=== PATIENT | female | born 1995 | race Caucasian/White ===

== ENCOUNTER 2017-11-10 02:57 | Emergency (ER) | payer OTHER ==
[~2017-11-10] VITALS: Ht 170.2 cm; Wt 65.0 kg
[2017-11-10] MEDS ORDERED: SODIUM CHLOR 0.9% 1000 ML INJ 1,000 ML IV ONE ×2 (03:30→04:45)
[2017-11-10] MEDS ORDERED: SODIUM CHLORIDE 0.9% FLUSH 10 ML FLUSH IVF PRN (03:30)
[2017-11-10] MEDS ORDERED: ONDANSETRON HCL 4 MG/2 ML VIAL IV PUSH ONE (03:30)
[2017-11-10 03:53] VITALS: BP 119/72; PULSE 97; RESP 16; TEMP 98.4; O2SAT 99
[2017-11-10] MEDS ORDERED: ANXIETY (03:56)
[2017-11-10] MEDS ORDERED: BIRTH CONTROL (03:56)
[2017-11-10 03:57] LABS: AUTOMATED NEUTROPHIL # 2.9 TH/MM3 (1.8-7.7); BASOPHIL # 0.1 TH/MM3 (0-0.2); BASOPHIL % 0.9 % (0.0-2.0); EOSINOPHIL % 0.5 % (0.0-4.0); HEMATOCRIT 47.2 % (35.0-46.0); HEMOGLOBIN 16.6 GM/DL (11.6-15.3); LYMPHOCYTE # 2.9 TH/MM3 (1.0-4.8); MEAN CELL VOLUME 89.1 FL (80.0-100.0); MEAN CORPUSCULAR HEMOGLOBIN 31.3 PG (27.0-34.0); MEAN CORPUSCULAR HGB CONC 35.2 % (32.0-36.0); MEAN PLATELET VOLUME 7.5 FL (7.0-11.0); MONO % 4.1 % (0.0-8.0); MONOCYTE # 0.3 TH/MM3 (0-0.9); NEUT % 47.5 % (16.0-70.0); PLATELET COUNT 343 TH/MM3 (150-450); RED CELL DISTRIBUTION WIDTH 11.8 % (11.6-17.2); WHITE BLOOD COUNT 6.2 TH/MM3 (4.0-11.0)
[2017-11-10 04:13] LABS: ALBUMIN 4.7 GM/DL (3.4-5.0); ALT (GPT) 54 U/L (10-53); AST (GOT) 38 U/L (15-37); BICARBONATE 25.3 MEQ/L (21.0-32.0); BLOOD UREA NITROGEN 8 MG/DL (7-18); CALCIUM 8.9 MG/DL (8.5-10.1); CHLORIDE 107 MEQ/L (98-107); CREATININE 0.74 MG/DL (0.50-1.00); GLOMERULAR FILTRATION RATE 98 ML/MIN (>89); GLUCOSE,RANDOM 93 MG/DL (74-106); SODIUM (NA) 141 MEQ/L (136-145)
--- NOTE | 2017-11-10 04:22 | PD ---
HPI Chief Complaint: Psychiatric Symptoms Time Seen by Provider: 03:19 Travel History International Travel<30 days: No Contact w/Intl Traveler<30days: No Traveled to known affect area: No History of Present Illness HPI Patient is a 22-year-old female presented voluntarily to the emergency department for psychiatric evaluation. Patient states that she has been under more stress lately and has been feeling depressed. She reports that her grandfather is sick, he has been sick for several months but is getting worse recently. She states that she has been drinking this evening, she does not normally drink on a daily basis. She reports 3-4 beers and 2 shots. Patient denies any suicidal ideations at this time, she does report saying that she felt suicidal to her friends and that is how the police got involved. Patient did arrive to the emergency department with a harbor police launch commander. She has no physical complaints at this time. Symptom onset is unknown, symptoms are moderate in nature. Patient is tearful on arrival. She does report that her fuel efficient aircraft designer put her on anxiety medicine about a month ago. [facility] Past Medical History Anxiety: Yes ?: Not Past Surgical History Surgical History: No Previous Surgery Social History Alcohol Use: Yes Tobacco Use: No Substance Use: No Allergies-Medications (Allergen,Severity, Reaction): Coded Allergies: latex (Verified Allergy, Severe, 11/10/17) Sulfa (Sulfonamide Antibiotics) (Verified Allergy, Unknown, 11/10/17) Reported Meds & Prescriptions Reported Meds & Active Scripts Active Reported [Anxiety] [ Control] Review of Systems Except as stated in HPI: all other systems reviewed are Neg Psychiatric: Positive: Anxiety, Depression, Suicidal Ideations Physical Exam Narrative GENERAL: Well-developed, well-nourished, well-kept female. Appears intoxicated, no acute distress. SKIN: Warm and dry. HEAD: Atraumatic. Normocephalic. EYES: Pupils equal and round. No scleral icterus. No injection or drainage. ENT: No nasal bleeding or discharge. Mucous membranes pink and moist. NECK: Trachea midline. No JVD. CARDIOVASCULAR: Regular rate and rhythm. RESPIRATORY: No accessory muscle use. Clear to auscultation. Breath sounds equal bilaterally. GASTROINTESTINAL: Abdomen soft, non-tender, nondistended. Hepatic and splenic margins not palpable. MUSCULOSKELETAL: Extremities without clubbing, cyanosis, or edema. No obvious deformities. NEUROLOGICAL: Awake and alert. No obvious cranial nerve deficits. Motor grossly within normal limits. Five out of 5 muscle strength in the arms and legs. Normal speech. PSYCHIATRIC: Depressed mood and affect; insight and judgment normal. Data Data Last Documented VS Vital Signs Date Time Temp Pulse Resp B/P (MAP) Pulse Ox O2 Delivery O2 Flow Rate FiO2 11/10/17 03:53 98.4 97 16 119/72 (88) 99 Orders Orders Complete Blood Count With Diff (11/10/17 03:29) Comprehensive Metabolic Panel (11/10/17 03:29) Thyroid Stimulating Hormone (11/10/17 03:29) Iv Access Insert/Monitor (11/10/17 03:29) Psych Screen (11/10/17 03:29) Sodium Chloride 0.9% Flush (Ns Flush) (11/10/17 03:30) Drug Screen, Random Urine (11/10/17 03:29) Alcohol (Ethanol) (11/10/17 03:29) Sodium Chlor 0.9% 1000 Ml Inj (Ns 1000 M (11/10/17 03:30) Ondansetron Inj (Zofran Inj) (11/10/17 03:30) Ed Urine Pregnancytest Poc (11/10/17 04:20) Labs Laboratory Tests Test 11/10/17 03:47 White Blood Count 6.2 TH/MM3 Red Blood Count 5.30 MIL/MM3 Hemoglobin 16.6 GM/DL Hematocrit 47.2 % Mean Corpuscular Volume 89.1 FL Mean Corpuscular Hemoglobin 31.3 PG Mean Corpuscular Hemoglobin Concent 35.2 % Red Cell Distribution Width 11.8 % Platelet Count 343 TH/MM3 Mean Platelet Volume 7.5 FL Neutrophils (%) (Auto) 47.5 % Lymphocytes (%) (Auto) 47.0 % Monocytes (%) (Auto) 4.1 % Eosinophils (%) (Auto) 0.5 % Basophils (%) (Auto) 0.9 % Neutrophils # (Auto) 2.9 TH/MM3 Lymphocytes # (Auto) 2.9 TH/MM3 Monocytes # (Auto) 0.3 TH/MM3 Eosinophils # (Auto) 0.0 TH/MM3 Basophils # (Auto) 0.1 TH/MM3 CBC Comment DIFF FINAL Differential Comment Blood Urea Nitrogen 8 MG/DL Creatinine 0.74 MG/DL Random Glucose 93 MG/DL Total Protein 8.8 GM/DL Albumin 4.7 GM/DL Calcium Level 8.9 MG/DL Alkaline Phosphatase 105 U/L Aspartate Amino Transf (AST/SGOT) 38 U/L Alanine Aminotransferase (ALT/SGPT) 54 U/L Total Bilirubin 0.3 MG/DL Sodium Level 141 MEQ/L Potassium Level 3.8 MEQ/L Chloride Level 107 MEQ/L Carbon Dioxide Level 25.3 MEQ/L Anion Gap 9 MEQ/L Estimat Glomerular Filtration Rate 98 ML/MIN Thyroid Stimulating Hormone 3rd Gen 2.260 uIU/ML Urine Opiates Screen NEG Urine Barbiturates Screen NEG Urine Amphetamines Screen NEG Urine Benzodiazepines Screen NEG Urine Cocaine Screen NEG Urine Cannabinoids Screen NEG Ethyl Alcohol Level 202 MG/DL MDM Medical Decision Making Medical Screen Exam Complete: Yes Emergency Medical Condition: Yes Interpretation(s) Laboratory Tests Test 11/10/17 03:47 White Blood Count 6.2 TH/MM3 Red Blood Count 5.30 MIL/MM3 Hemoglobin 16.6 GM/DL Hematocrit 47.2 % Mean Corpuscular Volume 89.1 FL Mean Corpuscular Hemoglobin 31.3 PG Mean Corpuscular Hemoglobin Concent 35.2 % Red Cell Distribution Width 11.8 % Platelet Count 343 TH/MM3 Mean Platelet Volume 7.5 FL Neutrophils (%) (Auto) 47.5 % Lymphocytes (%) (Auto) 47.0 % Monocytes (%) (Auto) 4.1 % Eosinophils (%) (Auto) 0.5 % Basophils (%) (Auto) 0.9 % Neutrophils # (Auto) 2.9 TH/MM3 Lymphocytes # (Auto) 2.9 TH/MM3 Monocytes # (Auto) 0.3 TH/MM3 Eosinophils # (Auto) 0.0 TH/MM3 Basophils # (Auto) 0.1 TH/MM3 CBC Comment DIFF FINAL Differential Comment Blood Urea Nitrogen 8 MG/DL Creatinine 0.74 MG/DL Random Glucose 93 MG/DL Total Protein 8.8 GM/DL Albumin 4.7 GM/DL Calcium Level 8.9 MG/DL Alkaline Phosphatase 105 U/L Aspartate Amino Transf (AST/SGOT) 38 U/L Alanine Aminotransferase (ALT/SGPT) 54 U/L Total Bilirubin 0.3 MG/DL Sodium Level 141 MEQ/L Potassium Level 3.8 MEQ/L Chloride Level 107 MEQ/L Carbon Dioxide Level 25.3 MEQ/L Anion Gap 9 MEQ/L Estimat Glomerular Filtration Rate 98 ML/MIN Thyroid Stimulating Hormone 3rd Gen 2.260 uIU/ML Urine Opiates Screen NEG Urine Barbiturates Screen NEG Urine Amphetamines Screen NEG Urine Benzodiazepines Screen NEG Urine Cocaine Screen NEG Urine Cannabinoids Screen NEG Ethyl Alcohol Level 202 MG/DL Vital Signs Date Time Temp Pulse Resp B/P (MAP) Pulse Ox O2 Delivery O2 Flow Rate FiO2 11/10/17 03:53 98.4 97 16 119/72 (88) 99 Differential Diagnosis Mood disorder versus substance abuse versus intoxication versus depression versus anxiety versus other Narrative Course Patient is a 22-year-old female presenting voluntarily to the emergency department for psychiatric evaluation. Patient is tearful on arrival, she does report feeling depressed and anxious. She was prescribed an unknown anxiety medicine by her fuel efficient aircraft designer which she does not feel is helping. She has had more alcohol intake today than she normally would drink and this could be contributing to her symptoms however she reports that her grandfather is chronically ill and getting worse which is adding to her stress. Mental health screening discussed with the patient. Psychiatric screen ordered. Labs reviewed, no acute findings identified. Patient's blood alcohol level is 202, she received 1 L of IV fluids, her mother and fianc are at bedside. Patient is medically cleared for psychiatric evaluation. Diagnosis Primary Impression: Medical clearance for psychiatric admission Additional Impression: Alcohol intoxication Qualified Codes: F10.920 - Alcohol use, unspecified with intoxication, uncomplicated Condition: Stable Keily Powell November 10, 2017 04:22
[2017-11-10 04:23] LABS: ALKALINE PHOSPHATASE 105 U/L (45-117); TOTAL BILIRUBIN ADULT 0.3 MG/DL (0.2-1.0); TOTAL PROTEIN 8.8 GM/DL (6.4-8.2)
[2017-11-10] MEDS ORDERED: ALPRAZolam 0.25 MG TAB PO ONE (04:45)
[2017-11-10 13:10] VITALS: BP 112/56; PULSE 77; RESP 14; TEMP 98.4; O2SAT 98
[2017-11-10 14:15] VITALS: BP 103/55; PULSE 84; RESP 18; O2SAT 99
--- NOTE | 2017-11-10 15:03 | PD ---
Physical Exam Date Seen by Provider: November 10, 2017 Time Seen by Provider: 15:00 Data Data Last Documented VS Vital Signs Date Time Temp Pulse Resp B/P (MAP) Pulse Ox O2 Delivery O2 Flow Rate FiO2 11/10/17 14:15 84 18 103/55 (71) 99 11/10/17 13:10 98.4 Room Air Orders Orders Complete Blood Count With Diff (11/10/17 03:29) Comprehensive Metabolic Panel (11/10/17 03:29) Thyroid Stimulating Hormone (11/10/17 03:29) Iv Access Insert/Monitor (11/10/17 03:29) Psych Screen (11/10/17 03:29) Sodium Chloride 0.9% Flush (Ns Flush) (11/10/17 03:30) Drug Screen, Random Urine (11/10/17 03:29) Alcohol (Ethanol) (11/10/17 03:29) Sodium Chlor 0.9% 1000 Ml Inj (Ns 1000 M (11/10/17 03:30) Ondansetron Inj (Zofran Inj) (11/10/17 03:30) Ed Urine Pregnancytest Poc (11/10/17 04:20) Alprazolam (Xanax) (11/10/17 04:45) Sodium Chlor 0.9% 1000 Ml Inj (Ns 1000 M (11/10/17 04:45) Diet Regular Basic (11/10/17 Breakfast) Diet Regular Basic (11/10/17 Lunch) Diet Regular Basic (11/10/17 Dinner) Labs Laboratory Tests Test 11/10/17 03:47 White Blood Count 6.2 TH/MM3 Red Blood Count 5.30 MIL/MM3 Hemoglobin 16.6 GM/DL Hematocrit 47.2 % Mean Corpuscular Volume 89.1 FL Mean Corpuscular Hemoglobin 31.3 PG Mean Corpuscular Hemoglobin Concent 35.2 % Red Cell Distribution Width 11.8 % Platelet Count 343 TH/MM3 Mean Platelet Volume 7.5 FL Neutrophils (%) (Auto) 47.5 % Lymphocytes (%) (Auto) 47.0 % Monocytes (%) (Auto) 4.1 % Eosinophils (%) (Auto) 0.5 % Basophils (%) (Auto) 0.9 % Neutrophils # (Auto) 2.9 TH/MM3 Lymphocytes # (Auto) 2.9 TH/MM3 Monocytes # (Auto) 0.3 TH/MM3 Eosinophils # (Auto) 0.0 TH/MM3 Basophils # (Auto) 0.1 TH/MM3 CBC Comment DIFF FINAL Differential Comment Blood Urea Nitrogen 8 MG/DL Creatinine 0.74 MG/DL Random Glucose 93 MG/DL Total Protein 8.8 GM/DL Albumin 4.7 GM/DL Calcium Level 8.9 MG/DL Alkaline Phosphatase 105 U/L Aspartate Amino Transf (AST/SGOT) 38 U/L Alanine Aminotransferase (ALT/SGPT) 54 U/L Total Bilirubin 0.3 MG/DL Sodium Level 141 MEQ/L Potassium Level 3.8 MEQ/L Chloride Level 107 MEQ/L Carbon Dioxide Level 25.3 MEQ/L Anion Gap 9 MEQ/L Estimat Glomerular Filtration Rate 98 ML/MIN Thyroid Stimulating Hormone 3rd Gen 2.260 uIU/ML Urine Opiates Screen NEG Urine Barbiturates Screen NEG Urine Amphetamines Screen NEG Urine Benzodiazepines Screen NEG Urine Cocaine Screen NEG Urine Cannabinoids Screen NEG Ethyl Alcohol Level 202 MG/DL MDM Supervised Visit with [facility]: No Narrative Course 22-year-old female brought to the emergency department for evaluation of depression. Patient is intoxicated on arrival. She was initially seen by ENA Sanchez and cleared from the medical perspective. She was then evaluated by Rashida Torres physician primary care sports medicine. She is deemed safe for discharge and provided with outpatient resources. Diagnosis is adjustment disorder with mixed anxiety and depression. The patient is stable and discharged home. Diagnosis Primary Impression: Medical clearance for psychiatric admission Additional Impressions: Alcohol intoxication Qualified Codes: F10.920 - Alcohol use, unspecified with intoxication, uncomplicated Adjustment disorder with mixed anxiety and depressed mood Referrals: Psychiatrist Additional Instruction: Rest, hydrate. Seek outpatient treatment for any further psychiatric issues. Return to the ED for any urgent or emergent medical condition. Disposition: DISCHARGE HOME Condition: Stable Daylin Calderón November 10, 2017 15:03
--- NOTE | 2017-11-10 15:15 | PD ---
History of Present Illness Chief Complaint: Psychiatric Symptoms Time Seen by Provider: 14:35 Travel History International Travel<30 Days: No Contact w/Intl Traveler<30days: No Known affected area: No Legal Status Legal Status: Voluntary History of Present Illness: History of Present Illness HPI Patient is a 22-year-old, , single female with no previous psychiatric history presented voluntarily to the emergency department for psychiatric evaluation. Patient reports that earlier in the day she had been drinking alcohol and became more distraught and sad and her friends became concerned for her safety when she told them that in the past she has thought about suicide. Current stressors include her grandfather is sick and on hospice care, she graduated last week and still does not have a job, is getting in March. On arrival her blood alcohol level was 202. Patient was monitored in secure environment and presented no behavioral concerns and no suicidality. EMR is reviewed. No previous contact with [facility] psychiatry Department. Patient is seen. She is clinically sober. Patient does not present any evidence of any psychosis, no sixto or hypomania. The patient is requesting to be discharged and her mother is waiting for her in the lobby. She has been started on medication for her anxiety by her SHAREMILKER but she has not been taking the medication on a regular basis. Patient also admits that she had been drinking a little bit too much and she is not used to drinking that much. Patient is requesting referrals for counseling services. [facility] Past Medical History Anxiety: Yes ?: Not Past Surgical History Surgical History: No Previous Surgery Psychiatric History Psychiatric History Hx Psychiatric Treatment: No previous formal psychiatric treatment. No previous history of suicide attempt. No history of self-injurious behavior. History of Inpatient Treatment: No Guns or firearms in home: No Social History Single female X and has been doing so for the past year. She is currently living with her brother, her [id number], and her fianc. No history of abuse reported. Hx Alcohol Use: Yes Hx Tobacco Use: No Hx Substance Use: No Substance Use Type: Alcohol Other Substances Used: PT DRINKS ON MAYBE 2X A YRS Hx of Substance Use Treatment: No Family Psychiatric History Negative Allergies-Medications (Allergen,Severity, Reaction): Coded Allergies: latex (Verified Allergy, Severe, 11/10/17) Sulfa (Sulfonamide Antibiotics) (Verified Allergy, Unknown, 11/10/17) Reported Meds & Prescriptions Reported Meds & Active Scripts Active Reported [Anxiety] [ Control] Review of Systems Psychiatric: COMPLAINS OF: Anxiety Except as stated in HPI: all other systems reviewed are Neg Mental Status Examination Appearance: Appropriate (In [facility] and maintaining basic hygiene) Consciousness: Alert Orientation: x4 Motor Activity: Normal gait Speech: Unremarkable Language: Adequate Fund of Knowledge: Adequate Attention and Concentration: Adequate Memory: Unremarkable Mood: Sad, Anxious Affect: Other (Tearful) Thought Process & Associations: Intact, Logical, Goal directed Thought Content: Appropriate Hallucination Type: None Delusion Type: None Suicidal Ideation: No Suicidal Plan: No Suicidal Intention: No Homicidal Ideation: No Homicidal Plan: No Homicidal Intention: No Insight: Adequate Judgment: Adequate MDM Medical Decision Making Medical Record Reviewed: Yes Assessment/Plan Patient is a 22-year-old, , single female with no previous psychiatric history presented voluntarily to the emergency department for psychiatric evaluation. Patient reports that earlier in the day she had been drinking alcohol and became more distraught and sad and her friends became concerned for her safety when she told them that in the past she has thought about suicide. Current stressors include her grandfather is sick and on hospice care, she graduated last week and still does not have a job, is getting in March. On arrival her blood alcohol level was 202. Patient was monitored in secure environment and presented no behavioral concerns and no suicidality. Once clinically sober the patient presents no suicidal or homicidal ideation , intent or plan. There is no evidence of unstable mental illness. The patient is anxious but has been able to function at work and at home. She acknowledges that this episode involved alcohol. She wants to be discharged and would like to initiate outpatient counseling. She is provided psychoeducation. Recommend that she continue with medication prescribed by her TABLE AND DESK FINISHER. I have recommended outpatient counseling. Patient is advised to return to the ED if any changes. Psychiatric clear for discharge from the ED. Orders Orders Complete Blood Count With Diff (11/10/17 03:29) Comprehensive Metabolic Panel (11/10/17 03:29) Thyroid Stimulating Hormone (11/10/17 03:29) Iv Access Insert/Monitor (11/10/17 03:29) Psych Screen (11/10/17 03:29) Sodium Chloride 0.9% Flush (Ns Flush) (11/10/17 03:30) Drug Screen, Random Urine (11/10/17 03:29) Alcohol (Ethanol) (11/10/17 03:29) Sodium Chlor 0.9% 1000 Ml Inj (Ns 1000 M (11/10/17 03:30) Ondansetron Inj (Zofran Inj) (11/10/17 03:30) Ed Urine Pregnancytest Poc (11/10/17 04:20) Alprazolam (Xanax) (11/10/17 04:45) Sodium Chlor 0.9% 1000 Ml Inj (Ns 1000 M (11/10/17 04:45) Diet Regular Basic (11/10/17 Breakfast) Diet Regular Basic (11/10/17 Lunch) Diet Regular Basic (11/10/17 Dinner) Results Vital Signs Date Time Temp Pulse Resp B/P (MAP) Pulse Ox O2 Delivery O2 Flow Rate FiO2 11/10/17 14:15 84 18 103/55 (71) 99 11/10/17 13:10 98.4 77 14 112/56 (74) 98 Room Air 11/10/17 03:53 98.4 97 16 119/72 (88) 99 Laboratory Tests Test 11/10/17 03:47 White Blood Count 6.2 Red Blood Count 5.30 Hemoglobin 16.6 Hematocrit 47.2 Mean Corpuscular Volume 89.1 Mean Corpuscular Hemoglobin 31.3 Mean Corpuscular Hemoglobin Concent 35.2 Red Cell Distribution Width 11.8 Platelet Count 343 Mean Platelet Volume 7.5 Neutrophils (%) (Auto) 47.5 Lymphocytes (%) (Auto) 47.0 Monocytes (%) (Auto) 4.1 Eosinophils (%) (Auto) 0.5 Basophils (%) (Auto) 0.9 Neutrophils # (Auto) 2.9 Lymphocytes # (Auto) 2.9 Monocytes # (Auto) 0.3 Eosinophils # (Auto) 0.0 Basophils # (Auto) 0.1 CBC Comment DIFF FINAL Differential Comment Blood Urea Nitrogen 8 Creatinine 0.74 Random Glucose 93 Total Protein 8.8 Albumin 4.7 Calcium Level 8.9 Alkaline Phosphatase 105 Aspartate Amino Transf (AST/SGOT) 38 Alanine Aminotransferase (ALT/SGPT) 54 Total Bilirubin 0.3 Sodium Level 141 Potassium Level 3.8 Chloride Level 107 Carbon Dioxide Level 25.3 Anion Gap 9 Estimat Glomerular Filtration Rate 98 Thyroid Stimulating Hormone 3rd Gen 2.260 Urine Opiates Screen NEG Urine Barbiturates Screen NEG Urine Amphetamines Screen NEG Urine Benzodiazepines Screen NEG Urine Cocaine Screen NEG Urine Cannabinoids Screen NEG Ethyl Alcohol Level 202 Diagnosis Primary Impression: Medical clearance for psychiatric admission Additional Impressions: Alcohol intoxication Adjustment disorder with mixed anxiety and depressed mood Psychiatrically Cleared: Yes Med/ Other Pt Specific Info: No Change to Meds Disposition: 01 DISCHARGE HOME Condition: Stable Problem Qualifiers Additional Impressions: Alcohol intoxication Qualified Codes: F10.920 - Alcohol use, unspecified with intoxication, uncomplicated Rashida Torres [facility] November 10, 2017 15:15
== END 2017-11-10 15:31 | disposition home or self-care (01) ==
LOC: NEPD 02:57 → NEPJ 15:31
DX: F10.920 Alcohol use, unspecified with intoxication, uncomplicated (principal); F43.23 Adjustment disorder with mixed anxiety and depressed mood; Y90.7 Blood alcohol level of 200-239 mg/100 ml
CPT/HCPCS: 80053; 80307; 84443; 84703; 85025; 96361; 96374; 99284; J2405; J7030